=== PATIENT | female | born 1985 | race Hispanic/Latino ===

== ENCOUNTER 2019-02-09 10:13 | Outpatient (CLI) | payer OTHER ==
--- NOTE | 2019-02-09 11:36 | ULT ---
EXAM: Obstetrical ultrasound greater than 14 weeks: HISTORY: Elderly multigravida second trimester supervision, size and dates, complete anatomy COMPARISON: None. FINDINGS: Single viable intrauterine fetus is noted in Cephalic presentation. heart rate equals 155 bpm. Placenta is posterior. Cervical length is poorly seen. Amniotic fluid is Within normal limits. anatomy: Visualized brain, 4 chamber heart, chest, three-vessel cord, cord insert, stomach, bladder, kid neys, spine, and extremity regions are unremarkable. Nose and lips region was less than optimally seen. biometry: BPD: 5.6 cm--23 weeks 0 days Head circumference: 21 cm--23 weeks 0 days Abdominal circumference: 18.4 cm--23 weeks 1 day Femur length:3.8 cm--22 weeks 0 days IMPRESSION: Gestational age by ultrasound: 22 weeks 6 days MARCIE by ultrasound: 06/09/2019 Estimated weight: 531 g 31 percentile
== END 2019-02-09 10:14 | disposition home or self-care (01) ==
LOC: SCSULT 10:13
PROVIDERS: ATTEND Family Medicine
DX: O09.522 Supervision of elderly multigravida, second trimester (principal); Z3A.22 22 weeks gestation of pregnancy
CPT/HCPCS: 76805

== ENCOUNTER 2019-06-09 00:53 | Inpatient (IN) | payer OTHER ==
[2019-06-09] MEDS ORDERED: Carboprost 250 MCG/ML AMP IM PRN (01:40)
[2019-06-09] MEDS ORDERED: Lidocaine 1% (PF) 30 ML VIAL SC PRN (01:40)
[2019-06-09] MEDS ORDERED: Ondansetron PF 4 MG/2 ML Vial IVP PRN ×4 (01:40→22:36)
[2019-06-09] MEDS ORDERED: Methylergonovine 0.2 MG/ML VIAL IM PRN (01:40)
[2019-06-09] MEDS ORDERED: Butorphanol Tartrate 1 MG/ML VIAL SLOW IVP PRN (01:40)
[2019-06-09] MEDS ORDERED: hydrALAZINE 20 MG/ML VIAL SLOW IVP PRN ×2 (01:40→22:36)
[2019-06-09] MEDS ORDERED: NS / Oxytocin 40 units/1000ml 1,000 ML IV PRN (01:40)
[2019-06-09] MEDS ORDERED: HYDROcodone/Acetaminophen 5/325 mg Tablet PO PRN ×2 (01:40→22:36)
[2019-06-09] MEDS ORDERED: Misoprostol 200 MCG TAB PR PRN (01:40)
[2019-06-09] MEDS ORDERED: Ibuprofen 800 MG TAB PO PRN (01:40)
[2019-06-09] MEDS ORDERED: Promethazine HCl 25 MG/ML VIAL IM PRN ×4 (01:40→22:36)
[2019-06-09] MEDS ORDERED: Diphenoxylate HCl/Atropine Tablet PO PRN (01:40)
[2019-06-09] MEDS ORDERED: NS w/ Oxytocin 10 units 500 ML IV SCH ×2 (02:00)
[2019-06-09] MEDS ORDERED: Penicillin G Potassium 5 MILL.UNITS in Sodium Chloride 0.9% 100 ML IVPB SCH (02:00)
[2019-06-09 03:08] LABS: Hemoglobin 10.6 g/dL (12.0-16.0); Mean Corpuscular HGB CONC 34.1 g/dL (32.0-36.0); Mean Corpuscular Hemoglobin 31.8 pg (27.0-31.0); Mean Corpuscular Volume 93.3 fL (78.0-98.0); Mean Platelet Volume 8.2 fL (7.4-10.4); Platelet Count 309 thou/uL (130-400); RBC Distribution Width 16.3 % (11.5-14.5); Red Blood Cell (RBC) Count 3.31 mill/uL (4.20-5.40); White Blood Cell (WBC) Count 11.2 thou/uL (4.8-10.8)
[2019-06-09 03:45] LABS: HBSAg Index 0.19 S/CO (0-0.99); Hep B Surf Ag Non-Reactive S/CO (NonReactive)
[2019-06-09 04:05] LABS: Syphilis Antibody Nonreactive (Nonreactive); Syphilis Antibody Index 0.04 S/CO (<1.00 Non-Reactive)
[2019-06-09] MEDS ORDERED: Penicillin G 2.5 MILL.units 2.5 MILL.UNITS in Premix Bag 1 BAG IVPB SCH (06:00)
[2019-06-09] MEDS: Lactated Ringer's 1,000 ML IV SCH (08:04)
[2019-06-09 08:51] VITALS: BMI 36.6
[2019-06-09] MEDS ORDERED: Bupivacaine 0.25% HCL 30 ML VIAL ONE (09:30)
[2019-06-09] MEDS ORDERED: Fentanyl 4 mcg/Bup 0.1% Cadd 100 ML ONE ×2 (09:49→16:39)
[2019-06-09] MEDS ORDERED: EPHEDRINE 25 MG/5 ML SYRINGE SLOW IVP PRN (10:32)
[2019-06-09] MEDS ORDERED: Acetaminophen 325 MG TAB PO PRN ×2 (10:32→22:36)
[2019-06-09] MEDS ORDERED: Lactated Ringer's 500 ML IV PRN (10:32)
[2019-06-09] MEDS ORDERED: Naloxone HCl 0.4 mg/ml Vial IVP PRN ×4 (10:32→20:32)
[2019-06-09] MEDS ORDERED: diphenhydrAMINE 50 MG/ML VIAL IVP PRN ×2 (10:32→20:32)
[2019-06-09] MEDS ORDERED: Communication Order-Pharmacy FS SCH ×2 (10:45→20:45)
[2019-06-09] MEDS ORDERED: Fentanyl 4 mcg/Bupivacaine 0.1% Cassette 100 ML EPIDURAL SCH (10:45)
[2019-06-09] MEDS ORDERED: Bicitra 30 ML UDCUP ONE (19:13)
[2019-06-09] MEDS ORDERED: Azithromycin 500 MG VIAL ONE (19:13)
[2019-06-09] MEDS ORDERED: diphenhydrAMINE 50 MG/ML VIAL ONE (19:21)
[2019-06-09] MEDS ORDERED: Ondansetron PF 4 MG/2 ML Vial ONE (19:21)
[2019-06-09] MEDS ORDERED: Dexamethasone 4 mg/ml Vial ONE (19:21)
[2019-06-09] MEDS ORDERED: Lidocaine 2% 10 ML INJ ONE (19:21)
[2019-06-09] MEDS ORDERED: Ketorolac Tromethamine 30 MG/ML VIAL ONE (19:21)
[2019-06-09] MEDS ORDERED: Oxytocin 10 UNITS/ML VIAL ONE (19:21)
[2019-06-09] MEDS ORDERED: MORPHINE 5 MG/10 ML PF VIAL ONE (19:56)
[2019-06-09] MEDS ORDERED: EPHEDRINE 25 MG/5 ML SYRINGE ONE (20:15)
[2019-06-09 20:16] LABS: Actual Bicarbonate (HCO3a) 22.4 mEq/L (22-28); Base Excess (BEa) -7.5 mEq/L (-2.0 to +3.0)
[2019-06-09 20:18] LABS: Actual Bicarbonate (HCO3v) 25 mEq/L (22-28); Base Excess -3.3 mEq/L (-2.0 to +3.0); pH (Cord, venous) 7.27 (7.32-7.43)
[2019-06-09] MEDS ORDERED: Bupivacaine PF 0.5% 30 ML VIAL ONE (20:25)
[2019-06-09] MEDS ORDERED: HYDROmorphone 2 MG/ML VIAL SLOW IVP PRN (20:32)
[2019-06-09] MEDS ORDERED: Promethazine HCl 25 MG SUPP PR PRN (20:32)
[2019-06-09] MEDS ORDERED: L&D-Morphine 4 MG/ML VIAL SLOW IVP PRN (20:32)
[2019-06-09] MEDS ORDERED: Ondansetron HCl/PF 4 MG/2 ML Vial IVP PRN (20:32)
[2019-06-09] MEDS ORDERED: Naloxone HCl 0.4 mg/ml Vial IV PRN (20:32)
[2019-06-09] MEDS ORDERED: Meperidine HCl/PF 25 MG/ML VIAL SLOW IVP PRN (20:32)
--- NOTE | 2019-06-09 21:21 | OP ---
DATE OF PROCEDURE: 06/09/2019 PRIMARY SURGEON: Dr. Shawn Gross POSTPARTUM RN SURGEON: Dr. Suad Rodriges. PROCEDURE PERFORMED: Primary low transverse section. PREOPERATIVE DIAGNOSES: 1. Term intrauterine . 2. Arrest of dilation. 3. Maternal history of HSV2. 4. Advanced maternal age. POSTOPERATIVE DIAGNOSES: 1. Term intrauterine , delivered. 2. Primary low transverse section. 3. Arrest of dilation. 4. Maternal history of HSV2. 5. Advanced maternal age. INDICATIONS FOR PROCEDURE: This is a 34-year-old G3, P1-0-1-1 at 39.6 weeks' gestational age, who presented for induction of labor. The patient had arrest of dilation at 8 cm and the decision was made to proceed with a low-transverse . DESCRIPTION OF PROCEDURE: After risks, benefits, and alternatives were discussed with the patient, she gave informed consent to proceed with primary low transverse . She was taken back to the operating room, and placed in the supine position with left lateral tilt. The patient already had an epidural in place, so she not required spinal. She was given 2 g of Ancef as well as 500 mg azithromycin given that she was laboring. She was prepped and draped in the usual sterile fashion. A Pfannenstiel incision was made with a scalpel and carried down to the level of the fascia, which was sharply nicked. The Luu scissors were used to extend the fascial cut laterally. Daisy clamps were used to grasp the superior and inferior edges of the cut fascial edges, and the underlying rectus muscles were sharply and bluntly dissected free. The peritoneum was entered in the midline bluntly. The peritoneum and rectus muscles were then stretched manually. Bladder blade was placed. A low-transverse incision was made in the midline of the uterus. Clear fluid was seen. The hysterotomy was extended in lateral direction. The infant was noted to be vertex and was easily delivered by fundal pressure. Nuchal cord x1 which was easily reduced. The cord was cut and clamped and grossly normal male was handed to awaiting nurse. The infant did require some resuscitation including PPV. Cord gases were sent for analysis. The cord blood was obtained. The placenta was delivered spontaneously and noted to be intact with three-vessel cord and discarded. The uterus was then externalized and curetted with a dry lap. The hysterotomy was approximated using 0-Vicryl suture in a running locking fashion. Several durtgt-du-rlark stitches were needed to achieve hemostasis using 0-Vicryl. After the hysterotomy was noted to be hemostatic, the abdomen was irrigated posteriorly and suctioned free of clots. The abdomen was then irrigated anteriorly and suctioned free of clots. Seprafilm was placed. The uterus was then internalized and hysterotomy was again noted to be hemostatic. The peritoneum was closed using 3-0 Vicryl in a running nonlocking fashion. The rectus muscles were examined and noted to be free of bleeders. The fascia was then closed using 0-PDS suture in a running nonlocking fashion. The subcutaneous tissue was irrigated, suctioned free of clots. Bleeders were cauterized. The subcutaneous tissue was then brought together using 2-0 plain gut in a simple interrupted fashion. The skin was then approximated using cecilia. Pressure dressing was applied. All counts were correct. COMPLICATIONS: None. DRAINS: Colindres to gravity, draining clear urine. FINDINGS: Grossly normal male . did require PPV for resuscitation. QBL: 985 mL Job ID: [id number] [facility]
[2019-06-09] MEDS ORDERED: diphenhydrAMINE 25 MG CAP PO PRN (22:36)
[2019-06-09] MEDS ORDERED: Adacel (T-DAP) 0.5 ML SYRINGE IM ONE (22:36)
[2019-06-09] MEDS ORDERED: Lanolin Ointment 7 GM TUBE TOP PRN (22:36)
[2019-06-09] MEDS ORDERED: Bisacodyl 10 MG SUPP PR PRN (22:36)
[2019-06-09] MEDS ORDERED: NS / Oxytocin 40 units/1000ml 1,000 ML IV SCH (22:36)
[2019-06-09] MEDS ORDERED: HYDROmorphone 2 MG/ML VIAL SLOW IVP SCH (22:45)
[2019-06-10] MEDS ORDERED: Ketorolac Tromethamine 30 MG/ML VIAL IVP SCH (02:45)
[2019-06-10] MEDS: Ketorolac Tromethamine 30 MG/ML VIAL IVP SCH ×3 (03:12→16:49)
[2019-06-10 06:02] LABS: Hemoglobin 8.6 g/dL (12.0-16.0); Mean Corpuscular Hemoglobin 32.4 pg (27.0-31.0); Mean Corpuscular Volume 95.2 fL (78.0-98.0); Mean Platelet Volume 7.9 fL (7.4-10.4); Platelet Count 264 thou/uL (130-400); RBC Distribution Width 16.4 % (11.5-14.5); Red Blood Cell (RBC) Count 2.67 mill/uL (4.20-5.40); White Blood Cell (WBC) Count 20.5 thou/uL (4.8-10.8)
[2019-06-10] MEDS: Misoprostol 100 MCG TAB PO SCH ×3 (06:51→06:53)
[2019-06-10] MEDS: Docusate Calcium (SURFAK) 240 MG CAP PO SCH ×3 (06:54→21:11)
[2019-06-10] MEDS: HYDROcodone/Acetaminophen 5/325 mg Tablet PO PRN ×4 (08:08→21:11)
[2019-06-10] MEDS: Lactated Ringer's 1,000 ML IV SCH ×2 (08:17→08:51)
[2019-06-10] MEDS ORDERED: Meperidine HCl/PF 25 MG/ML VIAL IM PRN (08:45)
[2019-06-10] MEDS ORDERED: FLU VACC QS2019-20(6MOS UP)/PF 60 MCG/0.5 ML SYRINGE IM ONE (09:00)
[2019-06-10] MEDS: Ferrous Sulfate 325 MG TAB PO SCH ×2 (09:59→21:11)
[2019-06-10] MEDS: Prenatal Vitamin 1 TAB PO SCH (09:59)
[2019-06-10] MEDS: Simethicone Chewable 80 MG TAB PO PRN ×2 (10:00→17:13)
[2019-06-10] MEDS: Ibuprofen 800 MG TAB PO SCH (19:34)
[2019-06-10] MEDS ORDERED: Ibuprofen 800 MG TAB PO SCH (22:00)
[2019-06-11] MEDS: HYDROcodone/Acetaminophen 5/325 mg Tablet PO PRN ×3 (01:08→08:45)
[2019-06-11] MEDS: Ibuprofen 800 MG TAB PO SCH ×3 (05:08→22:19)
[2019-06-11] MEDS: Simethicone Chewable 80 MG TAB PO PRN ×2 (08:45→17:01)
[2019-06-11] MEDS: Prenatal Vitamin 1 TAB PO SCH (08:45)
[2019-06-11] MEDS: Docusate Calcium (SURFAK) 240 MG CAP PO SCH ×2 (08:45→22:20)
[2019-06-11] MEDS ORDERED: Milk Of Magnesia 30 ML UDCUP PO PRN (12:41)
[2019-06-11] MEDS ORDERED: HYDROcodone/Acetaminophen 7.5/325 mg Tablet PO PRN (12:45)
[2019-06-11] MEDS: Ferrous Sulfate 325 MG TAB PO SCH ×2 (13:07→22:20)
[2019-06-11] MEDS: HYDROcodone/Acetaminophen 7.5/325 mg Tablet PO PRN ×2 (17:02→22:17)
[2019-06-12] MEDS: HYDROcodone/Acetaminophen 7.5/325 mg Tablet PO PRN ×4 (03:38→19:32)
[2019-06-12] MEDS: Ibuprofen 800 MG TAB PO SCH ×2 (06:31→14:10)
[2019-06-12] MEDS: Ferrous Sulfate 325 MG TAB PO SCH (08:24)
[2019-06-12] MEDS: Docusate Calcium (SURFAK) 240 MG CAP PO SCH (08:24)
[2019-06-12] MEDS: Prenatal Vitamin 1 TAB PO SCH (08:24)
[2019-06-12 08:59] VITALS: BP 140/73; TEMP 98.8
== END 2019-06-12 20:13 | disposition home or self-care (01) | DRG 787 ==
LOC: L&D 00:53 → 3SW 23:52 → EDSTATUS 06-11 00:48
PROVIDERS: ADMIT Family Medicine; ATTEND Family Medicine
PROC: 10D00Z1 Extraction of Products of Conception, Low, Open Approach (ICD-10-PCS; principal; 2019-06-09)
PROC: 3E0P05Z Introduction of Adhesion Barrier into Female Reproductive, Open Approach (ICD-10-PCS; 2019-06-09)
DX: O62.1 Secondary uterine inertia (principal); O98.52 Other viral diseases complicating childbirth; B00.9 Herpesviral infection, unspecified; Z3A.39 39 weeks gestation of pregnancy; Z37.0 Single live birth
CPT/HCPCS: 36415; 51702; 82805; 85027; 86780; 86850; 86900; 86901; 87340; J0456; J0690; J1100; J1170; J1200; J1885; J2001; J2175; J2274; J2405; J2590; S0020